=== PATIENT | male | born 1955 | race Hispanic/Latino ===

== ENCOUNTER → 2017-11-11 | Outpatient (CLI) | payer BC, OTHER | END | disposition home or self-care (01) | LOC: SHCH 10:13 | PROVIDERS: ATTEND Internal Medicine Cardiovascular Disease | DX: I42.8 Other cardiomyopathies (principal) | CPT/HCPCS: 93306 ==

== ENCOUNTER → 2019-06-22 | Outpatient (CLI) | payer OTHER | END | disposition home or self-care (01) | LOC: SLP 19:56 | PROVIDERS: ATTEND Internal Medicine Cardiovascular Disease | DX: G47.33 Obstructive sleep apnea (adult) (pediatric) (principal); I10 Essential (primary) hypertension; E66.9 Obesity, unspecified; Z68.41 Body mass index [BMI] 40.0-44.9, adult | CPT/HCPCS: 95810 ==

== ENCOUNTER → 2019-07-08 | Outpatient (CLI) | payer OTHER | END | disposition home or self-care (01) | LOC: SLP 20:33 | PROVIDERS: ATTEND Internal Medicine Cardiovascular Disease | DX: G47.33 Obstructive sleep apnea (adult) (pediatric) (principal); E66.9 Obesity, unspecified; I10 Essential (primary) hypertension; E11.9 Type 2 diabetes mellitus without complications; Z68.41 Body mass index [BMI] 40.0-44.9, adult | CPT/HCPCS: 95811 ==

== ENCOUNTER 2020-05-19 05:51 | Day surgery (SDC) | payer OTHER ==
[2020-05-17 09:22] LABS: BASOPHILS % (AUTO) 0.7 % (0.0-5.0); EOSINOPHILS % (AUTO) 1.5 % (0.0-8.0); HEMATOCRIT 46.8 % (42-54); MEAN CORPUSCULAR HEMOGLOBIN 32.1 pg (27.0-33.0); MEAN CORPUSCULAR VOLUME 94.4 fL (79-99); MONOCYTES % (AUTO) 6.1 % (3.0-13.0); NEUTROPHILS % (AUTO) 53.3 % (40.0-77.0); PLATELET COUNT (AUTO) 218 K/uL (130-400); RED BLOOD CELL COUNT(AUTO) 4.96 MIL/uL (4.50-6.20); RED CELL DISTRIBUTION WIDTH 12.4 % (11.0-15.5)
[2020-05-17 09:45] LABS: POTASSIUM 4.5 mmol/L (3.5-5.1)
[~2020-05-19] VITALS: Ht 177.8 cm; Wt 110.5 kg
[2020-05-19] VITALS (9 sets, daily range): BP systolic 121–148; BP diastolic 67–91
[~2020-05-19 05:51] MED LIST: APIX5TAB PO; ATOR10TA69 PO; FURO40TA5 PO; GABA-529 PO; LISI2.5T2 PO; METF-446 PO; METO-409 PO; PIOG30TA70 PO; VITA1CAP85 PO
[2020-05-19] MEDS ORDERED: SODIUM CHLORIDE 0.9% 1000ML 1,000 ML IV ONE (06:41)
[2020-05-19 06:45] LABS: INR 0.95 (0.85-1.15); PROTHROMBIN TIME 10.3 SEC (9.6-11.6)
[2020-05-19] MEDS ORDERED: INSULIN HUMULIN R 100 UNIT/ML 3ML ONE (07:21)
[2020-05-19] MEDS ORDERED: DEXTROSE 50%-WATER 50 ML DISP.SYRIN IV PRN (07:30)
[2020-05-19] MEDS ORDERED: GLUCAGON 1MG KIT 1 MG ML IM PRN (07:30)
[2020-05-19] MEDS ORDERED: HEPARIN SODIUM 1000UNIT/ML 10ML VIAL ONE (07:32)
[2020-05-19] MEDS ORDERED: MIDAZOLAM HCL 1 MG/ML 2ML VIAL ONE ×3 (07:33→09:24)
[2020-05-19] MEDS ORDERED: MEPERIDINE-PF 25 MG/ML SYG ONE ×3 (07:33→09:24)
[2020-05-19] MEDS ORDERED: LIDOCAINE HCL 2% 20ML ONE (07:33)
[2020-05-19] MEDS: INSULIN R PO SS1/2 SQ SCH ×2 (07:35→12:50)
[2020-05-19] MEDS ORDERED: INSULIN HUMULIN R 100 UNIT/ML 3ML SQ SCH (12:00)
== END 2020-05-19 14:45 | disposition home or self-care (01) ==
LOC: DAH 05:51
PROVIDERS: ATTEND Internal Medicine Cardiovascular Disease
DX: I48.3 Typical atrial flutter (principal); I48.0 Paroxysmal atrial fibrillation; Z79.82 Long term (current) use of aspirin; Z79.01 Long term (current) use of anticoagulants; Z79.84 Long term (current) use of oral hypoglycemic drugs; Z79.899 Other long term (current) drug therapy; I50.9 Heart failure, unspecified
CPT/HCPCS: 36415 ×2; 80048; 82948 ×3; 85025; 85610; 85730; 93613; 93621; 93653; A4215; A4216; A4222; A4223 ×3; A4606; A4649 ×2; A4663; C1730; C1732; C1894 ×2; J1644; J1815 ×2; J2175 ×3; J2250 ×3; J3490; J7030; 36246; 99156; 99157

== ENCOUNTER → 2023-01-07 | Outpatient (CLI) | payer OTHER ==
[~2023-01-07] MED LIST changes: +LISI2.5T13 PO; -LISI2.5T2 PO
== END | disposition home or self-care (01) ==
LOC: RAH 13:25
PROVIDERS: ATTEND Internal Medicine Cardiovascular Disease
DX: I25.5 Ischemic cardiomyopathy (principal); I51.7 Cardiomegaly; G24.9 Dystonia, unspecified; R00.0 Tachycardia, unspecified
CPT/HCPCS: 93306

== ENCOUNTER → 2023-01-11 | Outpatient (CLI) | payer OTHER ==
[~2023-01-11] MED LIST changes: +IOHEXOL 350 MG/ML 100ML INFUS..BTL IV ONE
== END | disposition home or self-care (01) ==
LOC: RAH 10:00
PROVIDERS: ATTEND Internal Medicine Cardiovascular Disease
DX: I48.0 Paroxysmal atrial fibrillation (principal); I48.4 Atypical atrial flutter; I25.10 Atherosclerotic heart disease of native coronary artery without angina pectoris; L72.3 Sebaceous cyst
CPT/HCPCS: 71275; Q9967

== ENCOUNTER 2023-01-21 21:10 | Inpatient (IN) | payer OTHER ==
[~2023-01-21] VITALS: Ht 175.3 cm; Wt 95.9 kg
[~2023-01-21 21:10] MED LIST changes: +AMIODARONE 150MG VIAL IV ONE; +CACL 1GM SYG IVP ONE; -IOHEXOL 350 MG/ML 100ML INFUS..BTL IV ONE; +LIDOCAINE PF 100MG/5ML (2%) SYRINGE 5ML IVP ONE; +MAGNESIUM SULFATE 1 GM/2 ML VIAL IM ONE; +SUCCINYLCHOLINE CHLORIDE 20 MG/ML 10 ML VIAL IVP ONE
[2023-01-21] MEDS ORDERED: AMIODARONE 150MG VIAL ONE ×2 (21:22→21:30)
[2023-01-21] MEDS: AMIODARONE 150MG VIAL 150 MG in DEXTROSE 5%-WATER 100 ML IV SCH ×2 (21:23→21:31)
[2023-01-21] MEDS ORDERED: MIDAZOLAM HCL 5 MG/ML 2ML VIAL IV ONE ×2 (21:25→21:47)
[2023-01-21] MEDS ORDERED: MIDAZOLAM HCL 1 MG/ML 5ML VIAL IVP ONE ×2 (21:30)
[2023-01-21] MEDS ORDERED: ADENOSINE 6MG VIAL IV ONE ×2 (21:30)
[2023-01-21] MEDS ORDERED: MAGNESIUM 2GM PREMIX 50ML 50 ML IV ONE (21:34)
[2023-01-21] MEDS ORDERED: LIDOCAINE HCL-MPF 2% 5ML VIAL ONE (21:34)
[2023-01-21 21:41] LABS: BASOPHILS % (AUTO) 0.4 % (0.0-5.0); EOSINOPHILS % (AUTO) 1.3 % (0.0-8.0); HEMATOCRIT 45.9 % (42-54); LYMPHOCYTES % (AUTO) 36.1 % (21.0-51.0); MEAN CORPUSCULAR HEMOGLOBIN 31.2 pg (27.0-33.0); MEAN CORPUSCULAR HGB CONC 33.8 g/dL (32.0-36.0); MEAN CORPUSCULAR VOLUME 92.4 fL (79-99); MONOCYTES % (AUTO) 9.2 % (3.0-13.0); NEUTROPHILS % (AUTO) 52.8 % (40.0-77.0); PLATELET COUNT (AUTO) 252 K/uL (130-400); RED BLOOD CELL COUNT(AUTO) 4.97 MIL/uL (4.50-6.20); RED CELL DISTRIBUTION WIDTH 13.6 % (11.0-15.5); WHITE BLOOD COUNT (AUTO) 9.3 K/uL (4.8-10.8)
[2023-01-21] MEDS: MAGNESIUM 2GM PREMIX 50ML 50 ML IV SCH (21:46)
[2023-01-21 21:49] LABS: CREATININE 0.8 mg/dL (0.5-1.5); POTASSIUM 3.4 mmol/L (3.5-5.1)
[2023-01-21 21:50] LABS: INR 1.04 (0.85-1.15); PROTHROMBIN TIME 11.3 SEC (9.6-11.6)
[2023-01-21 21:59] LABS: ALBUMIN 3.7 g/dL (3.5-5.0); TOTAL PROTEIN, SERUM 6.8 g/dL (6.0-8.3)
[2023-01-21] MEDS ORDERED: FENTANYL 2500MCG+NS 250ML 250 ML IV ONE (22:25)
[2023-01-21] MEDS ORDERED: LIDOCAINE HCL/PF 2% IV FOR VENTRICULAR ARRHYTHMIA IV PRN ×2 (22:30)
[2023-01-21] MEDS ORDERED: AMIODARONE 900MG VIAL IV ONE (22:30)
[2023-01-21] MEDS ORDERED: ESMOLOL HCL 10 MG/ML 10 ML VIAL ONE (22:35)
[2023-01-21] MEDS ORDERED: METOPROLOL TARTRATE 1 MG/ML 5ML VIAL IV ONE (22:56)
[2023-01-21] MEDS ORDERED: ESMOLOL HCL 10 MG/ML 10 ML VIAL IV SCH ×2 (23:00)
[2023-01-21] MEDS ORDERED: ACETAMINOPHEN 325 MG TAB PO PRN (23:30)
[2023-01-21] MEDS ORDERED: SUCCINYLCHOLINE 200MG/10ML SYR IVP SCH ×2 (23:30)
[2023-01-21] MEDS ORDERED: ACETAMINOPHEN 650 MG SUPPOSITORY RC PRN (23:30)
[2023-01-21] MEDS ORDERED: LACTULOSE 20 GM/30 ML UDCUP PO PRN (23:30)
[2023-01-21] MEDS ORDERED: PHENYLEPHRINE HCL 10 MG/ML 1ML VIAL IV ONE (23:34)
[2023-01-21] MEDS ORDERED: VASOPRESSIN 20 UNITS/ML 1ML VIAL ONE (23:43)
[2023-01-21 23:53] LABS: ABG BASE EXCESS -9.1 mmol/L (-2.0-3.0); ABG HCO3 18.5 mmol/L (21.0-28.0); ABG OXYGEN SATURATION 99.2 % (95.0-99.0); ABG PCO2 46 mmHg (35-48)
[2023-01-22] VITALS (87 sets, daily range): BP systolic 68–142; BP diastolic 43–98
[2023-01-22] MEDS ORDERED: VASOPRESSIN 20 UNITS in 0.9%NACL 100ML 100 ML IV SCH ×2
[2023-01-22] MEDS ORDERED: SODIUM BICARB 8.4% 50ML SYRINGE IVP ONE (01:00)
[2023-01-22] MEDS ORDERED: SODIUM BICARB 50MEQ 50ML VIAL 150 ML ONE (01:17)
[2023-01-22] MEDS ORDERED: EMPA25TA PO (02:17)
[2023-01-22] MEDS ORDERED: ROSU10TA28 PO (02:17)
[2023-01-22] MEDS ORDERED: MIDO5TAB4 PO (02:17)
[2023-01-22] MEDS ORDERED: PHENYLEPHRINE HCL 10 MG/ML 5ML VIAL IV ONE (03:23)
[2023-01-22 03:29] LABS: ABG BASE EXCESS -1.7 mmol/L (-2.0-3.0); ABG HCO3 24.5 mmol/L (21.0-28.0); ABG OXYGEN SATURATION 99.6 % (95.0-99.0); ABG PCO2 47 mmHg (35-48)
[2023-01-22] MEDS: POTASSIUM CHLORIDE 20MEQ/100ML 100 ML IV PRN ×2 (03:43→06:18)
[2023-01-22 05:00] LABS: BASOPHILS % (AUTO) 0.2 % (0.0-5.0); HEMATOCRIT 53.6 % (42-54); MEAN CORPUSCULAR HEMOGLOBIN 31.4 pg (27.0-33.0); MEAN CORPUSCULAR HGB CONC 33.2 g/dL (32.0-36.0); MEAN CORPUSCULAR VOLUME 94.5 fL (79-99); MONOCYTES % (AUTO) 9.5 % (3.0-13.0); NEUTROPHILS % (AUTO) 81.6 % (40.0-77.0); PLATELET COUNT (AUTO) 279 K/uL (130-400); RED BLOOD CELL COUNT(AUTO) 5.67 MIL/uL (4.50-6.20); WHITE BLOOD COUNT (AUTO) 20.2 K/uL (4.8-10.8)
[2023-01-22 05:10] LABS: AMPHET/METH SCREEN,URINE NEGATIVE (NEGATIVE); BARBITURATE SCREEN, URINE NEGATIVE (NEGATIVE); BENZODIAZEPINES SCREEN,URINE POSITIVE (NEGATIVE); CANNABINOID SCREEN,URINE NEGATIVE (NEGATIVE); COCAINE SCREEN,URINE NEGATIVE (NEGATIVE); OPIATE SCREEN,URINE NEGATIVE (NEGATIVE); PHENCYCLIDINE SCREEN,URINE NEGATIVE (NEGATIVE)
[2023-01-22 05:11] LABS: CREATININE 0.9 mg/dL (0.5-1.5); PHOSPHORUS 5.2 mg/dL (2.5-4.9); POTASSIUM 3.9 mmol/L (3.5-5.1)
[2023-01-22] MEDS: PHENYLEPHRINE HCL 50 MG in 0.9% NACL 250ML 250 ML IV PRN ×2 (09:46→17:54)
[2023-01-22] MEDS ORDERED: VANCOMYCIN PROTOCOL PER PHARMACY IV SCH (10:30)
[2023-01-22] MEDS: CEFEPIME HCL 1 GM VIAL IVPB SCH ×2 (10:47→17:35)
[2023-01-22] MEDS ORDERED: COMPOUND IV REFRIGERATED 1 EACH IVSOLN MISC PRN (11:00)
[2023-01-22] MEDS ORDERED: DEXMEDETOMIDINE 400MCG/NS100ML IV SCH (11:00)
[2023-01-22 11:11] LABS: APPEARANCE,URINE CLEAR (CLEAR); BILIRUBIN,URINE NEGATIVE (NEGATIVE); COLOR,URINE LIGHT-YELLOW (YELLOW); GLUCOSE, URINE (UA) >=1000 mg/dL (NEGATIVE); KETONES,URINE NEGATIVE (NEGATIVE); LEUKOCYTE ESTERASE ,URINE NEGATIVE Leu/uL (NEGATIVE); MUCUS,URINE RARE LPF (None Seen); NITRATE,URINE NEGATIVE (NEGATIVE); OCCULT BLOOD,URINE SMALL (NEGATIVE); PROTEIN,URINE 20 mg/dL (NEGATIVE); UROBILINOGEN,URINE 0.2 mg/dL (0.2-1.0)
[2023-01-22] MEDS ORDERED: LACTATED RINGERS 1000ML IV SCH (11:30)
[2023-01-22] MEDS: VANCOMYCIN 1.5 GM/250 ML BAG 250 ML IV SCH ×2 (12:43→20:25)
[2023-01-22] MEDS: MAGNESIUM 2GM PREMIX 50ML 50 ML IV SCH (12:55)
[2023-01-22] MEDS: AMIODARONE 150MG VIAL 150 MG in DEXTROSE 5%-WATER 100 ML IV SCH ×2 (12:55→12:56)
[2023-01-22] MEDS: INSULIN HUMULIN R 100 UNIT/ML 3ML SQ SCH ×2 (16:30→20:27)
[2023-01-22] MEDS ORDERED: ACETAMINOPHEN 325 MG TAB PO PRN (18:30)
[2023-01-22] MEDS: APIXABAN 5 MG TABLET PO SCH (20:26)
[2023-01-22] MEDS: AMIODARONE 200 MG TABLET PO SCH (20:27)
[2023-01-23] VITALS (59 sets, daily range): BP systolic 93–141; BP diastolic 47–84
[2023-01-23] MEDS: PHENYLEPHRINE HCL 50 MG in 0.9% NACL 250ML 250 ML IV PRN (01:32)
[2023-01-23] MEDS: CEFEPIME HCL 1 GM VIAL IVPB SCH ×3 (03:34→18:51)
[2023-01-23 04:26] LABS: BASOPHILS % (AUTO) 0.5 % (0.0-5.0); EOSINOPHILS % (AUTO) 0.8 % (0.0-8.0); HEMATOCRIT 43.2 % (42-54); LYMPHOCYTES % (AUTO) 22.9 % (21.0-51.0); MEAN CORPUSCULAR HEMOGLOBIN 31.5 pg (27.0-33.0); MEAN CORPUSCULAR HGB CONC 32.2 g/dL (32.0-36.0); MONOCYTES % (AUTO) 10.5 % (3.0-13.0); NEUTROPHILS % (AUTO) 64.9 % (40.0-77.0); PLATELET COUNT (AUTO) 199 K/uL (130-400); RED BLOOD CELL COUNT(AUTO) 4.41 MIL/uL (4.50-6.20); WHITE BLOOD COUNT (AUTO) 13.8 K/uL (4.8-10.8)
[2023-01-23 04:31] LABS: CREATININE 0.7 mg/dL (0.5-1.5); MAGNESIUM 2.3 mg/dL (1.80-2.40); POTASSIUM 3.8 mmol/L (3.5-5.1)
[2023-01-23] MEDS: INSULIN HUMULIN R 100 UNIT/ML 3ML SQ SCH ×5 (06:24→21:23)
[2023-01-23] MEDS ORDERED: POTASSIUM CHLORIDE 20MEQ/100ML 100 ML IV PRN (09:30)
[2023-01-23] MEDS ORDERED: MAGNESIUM 2GM PREMIX 50ML 50 ML IV PRN (09:30)
[2023-01-23] MEDS ORDERED: POTASSIUM CHLORIDE 10% ELIXIR 20 MEQ/15 ML UDCUP PO PRN (09:30)
[2023-01-23] MEDS: APIXABAN 5 MG TABLET PO SCH ×2 (09:59→21:27)
[2023-01-23] MEDS: VANCOMYCIN 1.5 GM/250 ML BAG 250 ML IV SCH ×2 (09:59→21:20)
[2023-01-23] MEDS: AMIODARONE 200 MG TABLET PO SCH ×2 (09:59→21:26)
[2023-01-23] MEDS: KCL 20 MEQ ERTAB PO PRN ×2 (10:00→13:12)
[2023-01-23] MEDS: MIDODRINE HCL 5 MG TABLET PO SCH ×3 (11:00→21:26)
[2023-01-24] MEDS: CEFEPIME HCL 1 GM VIAL IVPB SCH ×3 (02:34→17:22)
[2023-01-24 03:50] LABS: BASOPHILS % (AUTO) 0.3 % (0.0-5.0); HEMATOCRIT 37.9 % (42-54); LYMPHOCYTES % (AUTO) 21.4 % (21.0-51.0); MEAN CORPUSCULAR HEMOGLOBIN 31.2 pg (27.0-33.0); MEAN CORPUSCULAR HGB CONC 32.7 g/dL (32.0-36.0); MEAN CORPUSCULAR VOLUME 95.5 fL (79-99); NEUTROPHILS % (AUTO) 68.9 % (40.0-77.0); PLATELET COUNT (AUTO) 170 K/uL (130-400); RED BLOOD CELL COUNT(AUTO) 3.97 MIL/uL (4.50-6.20); RED CELL DISTRIBUTION WIDTH 13.6 % (11.0-15.5)
[2023-01-24 04:00] LABS: CREATININE 0.7 mg/dL (0.5-1.5); MAGNESIUM 1.9 mg/dL (1.80-2.40); POTASSIUM 3.8 mmol/L (3.5-5.1)
[2023-01-24 04:17] VITALS: BP 114/73
[2023-01-24] MEDS: INSULIN HUMULIN R 100 UNIT/ML 3ML SQ SCH ×4 (06:41→20:02)
[2023-01-24 07:00] VITALS: BP 122/73
[2023-01-24] MEDS: VANCOMYCIN 1.5 GM/250 ML BAG 250 ML IV SCH ×2 (09:58→20:02)
[2023-01-24] MEDS: MIDODRINE HCL 5 MG TABLET PO SCH ×3 (09:59→20:02)
[2023-01-24] MEDS: AMIODARONE 200 MG TABLET PO SCH ×2 (09:59→20:02)
[2023-01-24] MEDS: APIXABAN 5 MG TABLET PO SCH ×2 (10:00→20:02)
[2023-01-24 11:00] VITALS: BP 113/73
[2023-01-24 16:00] VITALS: BP 158/82
[2023-01-24 19:28] VITALS: BP 138/83
[2023-01-25 00:24] VITALS: BP 118/77
[2023-01-25] MEDS: CEFEPIME HCL 1 GM VIAL IVPB SCH ×2 (02:50→10:45)
[2023-01-25 03:52] LABS: BASOPHILS % (AUTO) 0.7 % (0.0-5.0); EOSINOPHILS % (AUTO) 1.5 % (0.0-8.0); HEMATOCRIT 38.5 % (42-54); LYMPHOCYTES % (AUTO) 23.9 % (21.0-51.0); MEAN CORPUSCULAR HEMOGLOBIN 31.9 pg (27.0-33.0); MEAN CORPUSCULAR VOLUME 93.7 fL (79-99); MONOCYTES % (AUTO) 9.8 % (3.0-13.0); NEUTROPHILS % (AUTO) 63.7 % (40.0-77.0); PLATELET COUNT (AUTO) 175 K/uL (130-400); RED BLOOD CELL COUNT(AUTO) 4.11 MIL/uL (4.50-6.20); RED CELL DISTRIBUTION WIDTH 13.5 % (11.0-15.5); WHITE BLOOD COUNT (AUTO) 8.1 K/uL (4.8-10.8)
[2023-01-25 04:00] VITALS: BP 108/62
[2023-01-25 04:00] LABS: CREATININE 0.5 mg/dL (0.5-1.5); MAGNESIUM 1.7 mg/dL (1.80-2.40); POTASSIUM 3.5 mmol/L (3.5-5.1)
[2023-01-25] MEDS: MAGNESIUM 2GM PREMIX 50ML 50 ML IV SCH (05:15)
[2023-01-25] MEDS: KCL 20 MEQ ERTAB PO PRN (05:16)
[2023-01-25] MEDS: INSULIN HUMULIN R 100 UNIT/ML 3ML SQ SCH ×2 (06:38→11:22)
[2023-01-25 07:34] VITALS: BP 116/75
[2023-01-25] MEDS: AMIODARONE 200 MG TABLET PO SCH (08:18)
[2023-01-25] MEDS: MIDODRINE HCL 5 MG TABLET PO SCH ×2 (08:18→13:52)
[2023-01-25] MEDS: APIXABAN 5 MG TABLET PO SCH (08:19)
[2023-01-25] MEDS ORDERED: VANCOMYCIN 1.5 GM/250 ML BAG 250 ML IV SCH (08:35)
[2023-01-25 11:47] VITALS: BP 115/70
[2023-01-25] MEDS ORDERED: VANCOMYCIN 1.25 GM/250 ML BAG 250 ML IV SCH (14:00)
[2023-01-25] MEDS ORDERED: AMIO400T4 PO (14:44)
[2023-01-25] MEDS ORDERED: DOXY100C5 PO (14:44)
[2023-01-25] MEDS ORDERED: MIDO10TA PO (14:44)
[2023-01-25 16:01] VITALS: BP 112/68
[2023-01-25] MEDS ORDERED: OXYCODONE HCL 10 MG TAB.SR.12H PO SCH (21:00)
== END 2023-01-25 16:50 | disposition home or self-care (01) | DRG 871 ==
LOC: EDH 21:10 → EDHIP 23:23 → 2BH 01-22 01:27 → 2AH 01-23 21:57
PROVIDERS: ADMIT Internal Medicine Critical Care Medicine; ATTEND Internal Medicine Critical Care Medicine
PROC: 5A1935Z Respiratory Ventilation, Less than 24 Consecutive Hours (ICD-10-PCS; principal; 2023-01-21)
PROC: 0BH17EZ Insertion of Endotracheal Airway into Trachea, Via Natural or Artificial Opening (ICD-10-PCS; 2023-01-21)
DX: A41.9 Sepsis, unspecified organism (principal); J96.01 Acute respiratory failure with hypoxia; R65.21 Severe sepsis with septic shock; I47.20 Ventricular tachycardia, unspecified; I50.22 Chronic systolic (congestive) heart failure; I42.8 Other cardiomyopathies; I48.3 Typical atrial flutter; I95.9 Hypotension, unspecified; G47.33 Obstructive sleep apnea (adult) (pediatric); I25.10 Atherosclerotic heart disease of native coronary artery without angina pectoris; D72.829 Elevated white blood cell count, unspecified; E11.9 Type 2 diabetes mellitus without complications; I10 Essential (primary) hypertension; I48.0 Paroxysmal atrial fibrillation; E66.09 Other obesity due to excess calories; Z68.31 Body mass index [BMI] 31.0-31.9, adult
CPT/HCPCS: 31500; 36415; 36600; 71045; 80048; 80053; 80202; 80305; 81001; 82435; 82803; 82947; 82948; 83605; 83735; 83880; 84100; 84132; 84145; 84295; 84484; 85018; 85025; 85610; 87040; 87088; 93005; 94002; 94003; 97039; 99291; 99292; G0378; J0282; J0330; J0692; J1815; J2001; J2250; J2370; J3010; J3475; J3480; J3490; J7050

== ENCOUNTER 2023-06-09 17:34 | Inpatient (IN) | payer OTHER ==
[~2023-06-09] VITALS: Ht 172.7 cm; Wt 102.1 kg
[~2023-06-09 17:34] MED LIST changes: +AMIO400T4 PO; -AMIODARONE 150MG VIAL IV ONE; -APIX5TAB PO; -ATOR10TA69 PO; -CACL 1GM SYG IVP ONE; +DOXY100C5 PO; +EMPA25TA PO; -GABA-529 PO; -LIDOCAINE PF 100MG/5ML (2%) SYRINGE 5ML IVP ONE; -LISI2.5T13 PO; -MAGNESIUM SULFATE 1 GM/2 ML VIAL IM ONE; -METO-409 PO; +MIDO10TA PO; +ROSU10TA28 PO; -SUCCINYLCHOLINE CHLORIDE 20 MG/ML 10 ML VIAL IVP ONE
[2023-06-09 18:35] LABS: BASOPHILS # (AUTO) 0.04 K/uL (0.00-0.20); BASOPHILS % (AUTO) 0.5 % (0.0-5.0); EOSINOPHILS # (AUTO) 0.08 K/uL (0.00-0.70); EOSINOPHILS % (AUTO) 0.9 % (0.0-8.0); HEMATOCRIT 36.8 % (42-54); IMMATURE GRANULOCYTE ABSOLUTE 0.02 K/uL (0-1); LYMPHOCYTES # (AUTO) 2.2 K/uL (1.0-4.8); LYMPHOCYTES % (AUTO) 24.6 % (21.0-51.0); MEAN CORPUSCULAR HEMOGLOBIN 31.3 pg (27.0-33.0); MEAN CORPUSCULAR HGB CONC 32.9 g/dL (32.0-36.0); MEAN CORPUSCULAR VOLUME 95.3 fL (79-99); MONOCYTES # (AUTO) 0.5 K/uL (0.1-1.0); MONOCYTES % (AUTO) 5.1 % (3.0-13.0); NEUTROPHILS % (AUTO) 68.7 % (40.0-77.0); PLATELET COUNT (AUTO) 201 K/uL (130-400); RED BLOOD CELL COUNT(AUTO) 3.86 MIL/uL (4.50-6.20); RED CELL DISTRIBUTION WIDTH 15.2 % (11.0-15.5); WHITE BLOOD COUNT (AUTO) 8.8 K/uL (4.8-10.8)
[2023-06-09 18:48] LABS: CREATININE 0.8 mg/dL (0.5-1.5); POTASSIUM 3.2 mmol/L (3.5-5.1)
[2023-06-09 18:49] LABS: INR 1.11 (0.85-1.15); PROTHROMBIN TIME 12.8 SEC (9.6-11.6)
[2023-06-09 18:52] LABS: ALBUMIN 3.5 g/dL (3.5-5.0); BILIRUBIN,TOTAL 0.9 mg/dL (0.2-1.0); TOTAL PROTEIN, SERUM 6.7 g/dL (6.0-8.3)
[2023-06-09 18:56] LABS: B-TYPE NATRIURETIC PEPTIDE 518 pg/mL (0-100)
[2023-06-09] MEDS ORDERED: GUAIFENESIN-DM 200/20 MG 10 ML PO PRN (22:00)
[2023-06-09] MEDS ORDERED: HYDROCODONE/ACETAMINOPHEN 5/325 MG TAB PO PRN (22:00)
[2023-06-09] MEDS ORDERED: DiphenhydrAMINE HCL 50 MG/ML VIAL IV PRN (22:00)
[2023-06-09] MEDS ORDERED: ACETAMINOPHEN 325 MG TAB PO PRN ×3 (22:00)
[2023-06-09] MEDS ORDERED: ZOLPIDEM TARTRATE 5 MG TAB PO PRN (22:00)
[2023-06-09] MEDS ORDERED: MAG/ALUM/SIMETH 30 ML UDCUP PO PRN (22:00)
[2023-06-09] MEDS ORDERED: ONDANSETRON 4MG INJ IV PRN (22:00)
[2023-06-09] MEDS ORDERED: NITROGLYCERIN 0.4 MG SL TAB SL PRN (22:00)
[2023-06-09 22:22] LABS: ABG BASE EXCESS 2.2 mmol/L (-2.0-3.0); ABG HCO3 26.1 mmol/L (21.0-28.0); ABG OXYGEN SATURATION 97.1 % (95.0-99.0); ABG PCO2 38 mmHg (35-48); ABG PH 7.454 (7.35-7.450); PO2, ARTERIAL BG 87.5 mmHg (83.0-108.0); VENT MODE, BG NC (ROOM AIR)
[2023-06-09] MEDS ORDERED: POTA-364 PO (23:15)
[2023-06-09] MEDS ORDERED: AMIO200T68 PO (23:15)
[2023-06-09] MEDS ORDERED: APIX5TAB PO (23:15)
[2023-06-09] MEDS ORDERED: FAMO20TA8 PO (23:15)
[2023-06-10] VITALS (9 sets, daily range): BP systolic 123–144; BP diastolic 85–91; PULSE 79–82; RESP 14–26; O2SAT 92–98
[2023-06-10] MEDS: ALBUTEROL 0.083% 2.5 MG/3 ML INH IH PRN ×4 (00:23→23:07)
[2023-06-10] MEDS ORDERED: POTASSIUM CHLORIDE 20MEQ/100ML 100 ML IV PRN ×2 (08:00)
[2023-06-10] MEDS ORDERED: POTASSIUM CHLORIDE 10% ELIXIR 20 MEQ/15 ML UDCUP PO PRN (08:00)
[2023-06-10] MEDS ORDERED: MAGNESIUM 2GM PREMIX 50ML 50 ML IV PRN (08:00)
[2023-06-10] MEDS ORDERED: FAMOTIDINE 20MG VIAL IV SCH (09:00)
[2023-06-10] MEDS ORDERED: AMIODARONE 200 MG TABLET PO SCH (09:00)
[2023-06-10] MEDS ORDERED: AMIODARONE HCL 400 MG PO SCH (09:00)
[2023-06-10] MEDS: HEPARIN 5,000 UNIT VIAL SQ SCH ×2 (09:10→20:35)
[2023-06-10] MEDS: FAMOTIDINE 20MG VIAL IV SCH ×2 (09:10→20:35)
[2023-06-10] MEDS: FUROSEMIDE 40MG VIAL IVP SCH ×2 (09:10→20:35)
[2023-06-10] MEDS: MIDODRINE HCL 5 MG TABLET PO SCH ×2 (09:11→20:38)
[2023-06-10 09:39] LABS: BASOPHILS # (AUTO) 0.08 K/uL (0.00-0.20); BASOPHILS % (AUTO) 0.9 % (0.0-5.0); EOSINOPHILS # (AUTO) 0.03 K/uL (0.00-0.70); EOSINOPHILS % (AUTO) 0.3 % (0.0-8.0); HEMATOCRIT 39.5 % (42-54); IMMATURE GRANULOCYTE ABSOLUTE 0.02 K/uL (0-1); LYMPHOCYTES # (AUTO) 1.6 K/uL (1.0-4.8); LYMPHOCYTES % (AUTO) 18.8 % (21.0-51.0); MEAN CORPUSCULAR HEMOGLOBIN 31.6 pg (27.0-33.0); MEAN CORPUSCULAR HGB CONC 33.2 g/dL (32.0-36.0); MEAN CORPUSCULAR VOLUME 95.2 fL (79-99); MONOCYTES # (AUTO) 0.4 K/uL (0.1-1.0); MONOCYTES % (AUTO) 4.7 % (3.0-13.0); NEUTROPHILS # (AUTO) 6.6 K/uL (1.8-7.7); NEUTROPHILS % (AUTO) 75.1 % (40.0-77.0); PLATELET COUNT (AUTO) 234 K/uL (130-400); RED BLOOD CELL COUNT(AUTO) 4.15 MIL/uL (4.50-6.20); RED CELL DISTRIBUTION WIDTH 15.4 % (11.0-15.5); WHITE BLOOD COUNT (AUTO) 8.7 K/uL (4.8-10.8)
[2023-06-10 09:54] LABS: HEMOGLOBIN A1C 6.3 % (4.0-6.0)
[2023-06-10 10:08] LABS: SARS-CoV-2, RNA, NAAT NEGATIVE SARS CoV-2 (NEGATIVE)
[2023-06-10 10:10] LABS: ALBUMIN 3.6 g/dL (3.5-5.0); CREATININE 0.8 mg/dL (0.5-1.5); MAGNESIUM 2.1 mg/dL (1.80-2.40); POTASSIUM 3.3 mmol/L (3.5-5.1); TOTAL PROTEIN, SERUM 7.1 g/dL (6.0-8.3)
[2023-06-10 10:15] LABS: INFLUENZA TYPE A Negative For Type A (NEGATIVE)
[2023-06-10 10:18] LABS: INFLUENZA TYPE B Positive For Type B (NEGATIVE)
[2023-06-10] MEDS: KCL 20 MEQ ERTAB PO PRN ×2 (10:44→12:19)
[2023-06-10] MEDS: INSULIN HUMULIN R 100 UNIT/ML 3ML SQ SCH ×3 (11:30→20:02)
[2023-06-10 16:49] LABS: APPEARANCE,URINE CLEAR (CLEAR); BILIRUBIN,URINE NEGATIVE (NEGATIVE); COLOR,URINE YELLOW (YELLOW); GLUCOSE, URINE (UA) NEGATIVE (NEGATIVE); KETONES,URINE NEGATIVE (NEGATIVE); LEUKOCYTE ESTERASE ,URINE NEGATIVE Leu/uL (NEGATIVE); MUCUS,URINE RARE LPF (None Seen); NITRATE,URINE NEGATIVE (NEGATIVE); OCCULT BLOOD,URINE NEGATIVE (NEGATIVE); PROTEIN,URINE 30 mg/dL (NEGATIVE); SQUAMOUS EPITHELIAL CELL,UR RARE /HPF (0-2); WBC,URINE 0-1 /HPF (0-1)
[2023-06-11] VITALS (10 sets, daily range): BP systolic 113–142; BP diastolic 75–90; PULSE 80–90; RESP 16–22; O2SAT 93–98
[2023-06-11] MEDS ORDERED: PHENAZOPYRIDINE HCL 200 MG TABLET PO PRN (02:30)
[2023-06-11] MEDS ORDERED: KETOROLAC 30MG VIAL (30MG/ML) IV ONE (02:30)
[2023-06-11 04:44] LABS: BASOPHILS # (AUTO) 0.04 K/uL (0.00-0.20); BASOPHILS % (AUTO) 0.4 % (0.0-5.0); HEMATOCRIT 37.5 % (42-54); IMMATURE GRANULOCYTE ABSOLUTE 0.02 K/uL (0-1); LYMPHOCYTES # (AUTO) 0.7 K/uL (1.0-4.8); MEAN CORPUSCULAR HEMOGLOBIN 32.1 pg (27.0-33.0); MEAN CORPUSCULAR HGB CONC 33.6 g/dL (32.0-36.0); MEAN CORPUSCULAR VOLUME 95.4 fL (79-99); MONOCYTES # (AUTO) 0.4 K/uL (0.1-1.0); MONOCYTES % (AUTO) 3.9 % (3.0-13.0); NEUTROPHILS % (AUTO) 88.5 % (40.0-77.0); PLATELET COUNT (AUTO) 225 K/uL (130-400); RED BLOOD CELL COUNT(AUTO) 3.93 MIL/uL (4.50-6.20); RED CELL DISTRIBUTION WIDTH 15.2 % (11.0-15.5); WHITE BLOOD COUNT (AUTO) 10.2 K/uL (4.8-10.8)
[2023-06-11 05:01] LABS: ALBUMIN 3.6 g/dL (3.5-5.0); BILIRUBIN,TOTAL 1.1 mg/dL (0.2-1.0); POTASSIUM 3.4 mmol/L (3.5-5.1); TOTAL PROTEIN, SERUM 6.8 g/dL (6.0-8.3)
[2023-06-11] MEDS: KCL 20 MEQ ERTAB PO PRN ×2 (05:14→05:15)
[2023-06-11] MEDS: INSULIN HUMULIN R 100 UNIT/ML 3ML SQ SCH ×4 (05:29→20:09)
[2023-06-11] MEDS: ALBUTEROL 0.083% 2.5 MG/3 ML INH IH PRN ×2 (06:46→18:18)
[2023-06-11] MEDS: FAMOTIDINE 20MG TAB PO SCH (08:54)
[2023-06-11] MEDS: MIDODRINE HCL 5 MG TABLET PO SCH ×2 (08:54→20:09)
[2023-06-11] MEDS: AMIODARONE 200 MG TABLET PO SCH (08:54)
[2023-06-11] MEDS: KCL 20 MEQ ERTAB PO SCH ×2 (08:54→14:29)
[2023-06-11] MEDS: VITAMIN B COMPLEX 1 CAPSULE PO SCH (08:54)
[2023-06-11] MEDS: APIXABAN 5 MG TABLET PO SCH ×2 (08:55→20:08)
[2023-06-11] MEDS: HEPARIN 5,000 UNIT VIAL SQ SCH ×2 (08:56→20:11)
[2023-06-11] MEDS: FAMOTIDINE 20MG VIAL IV SCH ×2 (08:57→20:08)
[2023-06-11] MEDS: FUROSEMIDE 40MG VIAL IVP SCH (08:57)
[2023-06-11] MEDS: TAMSULOSIN HCL 0.4 MG CAP.ER.24H PO SCH (14:28)
[2023-06-11] MEDS: OSELTAMIVIR PHOSPHATE 75 MG CAP PO SCH ×2 (14:29→20:08)
[2023-06-11] MEDS: LACTULOSE 20 GM/30 ML UDCUP PO PRN (14:59)
[2023-06-11 15:13] LABS: ADD UA MICROSCOPIC YES; APPEARANCE,URINE CLEAR (CLEAR); BILIRUBIN,URINE NEGATIVE (NEGATIVE); COLOR,URINE DARK-YELLOW (YELLOW); GLUCOSE, URINE (UA) NEGATIVE (NEGATIVE); KETONES,URINE NEGATIVE (NEGATIVE); LEUKOCYTE ESTERASE ,URINE NEGATIVE Leu/uL (NEGATIVE); NITRATE,URINE 1+ (NEGATIVE); OCCULT BLOOD,URINE NEGATIVE (NEGATIVE); PH,URINE 6.5 (5.0-8.0); PROTEIN,URINE 20 mg/dL (NEGATIVE); UROBILINOGEN,URINE 0.2 mg/dL (0.2-1.0)
[2023-06-11 15:17] LABS: RBC,URINE 0-1 /HPF (0-1); SQUAMOUS EPITHELIAL CELL,UR RARE /HPF (0-2); WBC,URINE 0-1 /HPF (0-1)
[2023-06-11] MEDS: FUROSEMIDE 40 MG TABLET PO SCH (16:58)
[2023-06-12] VITALS (7 sets, daily range): BP systolic 110–127; BP diastolic 72–95; PULSE 70–103; RESP 14–22; O2SAT 93–97
[2023-06-12 03:44] LABS: BASOPHILS # (AUTO) 0.04 K/uL (0.00-0.20); BASOPHILS % (AUTO) 0.6 % (0.0-5.0); EOSINOPHILS % (AUTO) 1.6 % (0.0-8.0); HEMATOCRIT 32.3 % (42-54); IMMATURE GRANULOCYTE ABSOLUTE 0.01 K/uL (0-1); LYMPHOCYTES % (AUTO) 31.1 % (21.0-51.0); MEAN CORPUSCULAR HEMOGLOBIN 31.7 pg (27.0-33.0); MEAN CORPUSCULAR HGB CONC 32.5 g/dL (32.0-36.0); MEAN CORPUSCULAR VOLUME 97.6 fL (79-99); MONOCYTES # (AUTO) 0.4 K/uL (0.1-1.0); MONOCYTES % (AUTO) 5.6 % (3.0-13.0); NEUTROPHILS # (AUTO) 3.9 K/uL (1.8-7.7); NEUTROPHILS % (AUTO) 60.9 % (40.0-77.0); PLATELET COUNT (AUTO) 194 K/uL (130-400); RED BLOOD CELL COUNT(AUTO) 3.31 MIL/uL (4.50-6.20); RED CELL DISTRIBUTION WIDTH 15.8 % (11.0-15.5); WHITE BLOOD COUNT (AUTO) 6.4 K/uL (4.8-10.8)
[2023-06-12 03:55] LABS: CREATININE 0.9 mg/dL (0.5-1.5); POTASSIUM 3.7 mmol/L (3.5-5.1)
[2023-06-12] MEDS: KCL 20 MEQ ERTAB PO PRN (06:10)
[2023-06-12] MEDS: INSULIN HUMULIN R 100 UNIT/ML 3ML SQ SCH ×2 (07:29→11:30)
[2023-06-12] MEDS ORDERED: OSEL75 PO (09:33)
[2023-06-12] MEDS ORDERED: TAMS-1 PO (09:33)
[2023-06-12] MEDS ORDERED: FURO40TA5 PO (09:33)
[2023-06-12] MEDS ORDERED: AMOX1TAB16 PO (09:33)
[2023-06-12] MEDS ORDERED: METO25TA6 PO (09:38)
[2023-06-12] MEDS ORDERED: LISI20TA24 PO (09:38)
[2023-06-12] MEDS: AMIODARONE 200 MG TABLET PO SCH (09:46)
[2023-06-12] MEDS: MIDODRINE HCL 5 MG TABLET PO SCH (09:46)
[2023-06-12] MEDS: VITAMIN B COMPLEX 1 CAPSULE PO SCH (09:46)
[2023-06-12] MEDS: FUROSEMIDE 40 MG TABLET PO SCH (09:46)
[2023-06-12] MEDS: FAMOTIDINE 20MG TAB PO SCH (09:47)
[2023-06-12] MEDS: OSELTAMIVIR PHOSPHATE 75 MG CAP PO SCH (09:49)
[2023-06-12] MEDS: APIXABAN 5 MG TABLET PO SCH (09:49)
[2023-06-12] MEDS: FAMOTIDINE 20MG VIAL IV SCH (09:49)
[2023-06-12] MEDS: TAMSULOSIN HCL 0.4 MG CAP.ER.24H PO SCH (10:03)
[2023-06-12] MEDS: HEPARIN 5,000 UNIT VIAL SQ SCH (10:07)
[2023-06-12] MEDS: LACTULOSE 20 GM/30 ML UDCUP PO PRN (12:00)
== END 2023-06-12 16:15 | disposition home or self-care (01) | DRG 291 ==
LOC: EDH 17:34 → EDHIP 21:52 → OBSVTOIN 21:52 → 2DH 06-10 17:42
PROVIDERS: ADMIT Internal Medicine Critical Care Medicine; ATTEND Internal Medicine Critical Care Medicine
DX: I11.0 Hypertensive heart disease with heart failure (principal); I50.43 Acute on chronic combined systolic (congestive) and diastolic (congestive) heart failure; Z20.822 Contact with and (suspected) exposure to COVID-19; E87.6 Hypokalemia; G47.33 Obstructive sleep apnea (adult) (pediatric); E66.01 Morbid (severe) obesity due to excess calories; E11.9 Type 2 diabetes mellitus without complications; E78.5 Hyperlipidemia, unspecified; I42.8 Other cardiomyopathies; I48.91 Unspecified atrial fibrillation; J10.1 Influenza due to other identified influenza virus with other respiratory manifestations; Z68.34 Body mass index [BMI] 34.0-34.9, adult; Z95.5 Presence of coronary angioplasty implant and graft; Z79.899 Other long term (current) drug therapy
CPT/HCPCS: 36415; 36600; 71045; 76705; 80048; 80053; 81001; 82140; 82550; 82803; 82948; 83036; 83605; 83735; 83874; 83880; 84145; 84153; 84484; 85025; 85378; 85610; 87040; 87088; 87635; 87804; 93005; 93306; 93356; 93970; 94640; 94664; 94760; 97039; G0378; J1644; J1815; J1885; J1940; J3490; G8980-CH; G8983-CH

== ENCOUNTER → 2024-11-05 | Outpatient (CLI) | payer OTHER ==
[~2024-11-05] MED LIST changes: +AMIO200T68 PO; -AMIO400T4 PO; +AMOX1TAB16 PO; +APIX5TAB PO; -DOXY100C5 PO; -EMPA25TA PO; +FAMO20TA8 PO; +LISI20TA24 PO; -METF-446 PO; +METO25TA6 PO; -MIDO10TA PO; +OSEL75 PO; +POTA-364 PO; -ROSU10TA28 PO; +TAMS-1 PO
[2024-11-05 12:02] LABS: BASOPHILS # (AUTO) 0.07 K/uL (0.00-0.20); BASOPHILS % (AUTO) 0.6 % (0.0-5.0); EOSINOPHILS # (AUTO) 0.08 K/uL (0.00-0.70); EOSINOPHILS % (AUTO) 0.7 % (0.0-8.0); HEMATOCRIT 41.9 % (42-54); IMMATURE GRANULOCYTE ABSOLUTE 0.02 K/uL (0-1); LYMPHOCYTES # (AUTO) 2.3 K/uL (1.0-4.8); MEAN CORPUSCULAR HEMOGLOBIN 32.5 pg (27.0-33.0); MEAN CORPUSCULAR HGB CONC 33.2 g/dL (32.0-36.0); MEAN CORPUSCULAR VOLUME 97.9 fL (79-99); MONOCYTES # (AUTO) 0.6 K/uL (0.1-1.0); NEUTROPHILS # (AUTO) 7.9 K/uL (1.8-7.7); NEUTROPHILS % (AUTO) 72.5 % (40.0-77.0); PLATELET COUNT (AUTO) 231 K/uL (130-400); RED BLOOD CELL COUNT(AUTO) 4.28 MIL/uL (4.50-6.20); RED CELL DISTRIBUTION WIDTH 14.7 % (11.0-15.5)
[2024-11-05 12:40] LABS: CREATININE 0.9 mg/dL (0.5-1.3); POTASSIUM 3.5 mmol/L (3.5-5.1); T4 (THYROXINE) 7.6 ug/dL (4.7-13.3); THYROID STIMULATING HORMONE 2.19 uIU/mL (0.36-3.74)
== END | disposition home or self-care (01) ==
LOC: LAB 10:28
PROVIDERS: ATTEND Internal Medicine Cardiovascular Disease
DX: I50.9 Heart failure, unspecified (principal); I48.0 Paroxysmal atrial fibrillation; R06.09 Other forms of dyspnea
CPT/HCPCS: 36415; 80048; 83880; 84436; 84443; 85025